=== PATIENT | female | born 1980 | race Caucasian/White ===

== ENCOUNTER 2020-12-16 14:55 | Emergency (ER) | payer MEDICAID ==
[~2020-12-16] VITALS: Ht 160 cm; Wt 59.0 kg
[~2020-12-16 14:55] MED LIST: PREN1CAP6 PO
[2020-12-16 15:14] VITALS: BP 118/74
--- NOTE | 2020-12-16 15:38 | NUR ---
PT TO WAIT IN LOBBY
--- NOTE | 2020-12-16 15:40 | NUR ---
C/O VAGINAL BLEEDING , N/V/D X 3 DAYS, LLQ ABDOMINAL PAIN, LOWER BACK PAIN, FEVER X 4 DAYS. ORAL TEMP 98.2 AT THIS TIME. 7 WEEKS . LMP 10/31/20. PMH: APPENDECTOMY, LEFT KIDNEY STONES & SURGERY, C SECTIONX3
[2020-12-16 16:11] LABS: APPEARANCE,URINE SL CLOUDY (CLEAR); BILIRUBIN,URINE NEGATIVE (NEGATIVE); BLOOD, URINE 3+ (NEGATIVE); COLOR,URINE YELLOW (YELLOW); LEUKOCYTE ESTERASE ,URINE TRACE (NEGATIVE); NITRITE, URINE NEGATIVE (NEGATIVE); UGLUCOSE NEGATIVE (NEGATIVE)
[2020-12-16 16:42] LABS: RBC,URINE 50-80 /HPF (0-5)
[2020-12-16 16:42] LABS: BASOPHILS % (AUTO) 0.8 % (0.0-2.0); EOSINOPHILS % (AUTO) 0.3 % (0.0-4.0); HEMATOCRIT 30.6 % (36-48); HEMOGLOBIN 9.7 g/dL (12.0-16.0); LYMPHOCYTES # (AUTO) 1.8 K/uL (2.5-16.5); MEAN CORPUSCULAR HEMOGLOBIN 24 pg (27-31); MEAN CORPUSCULAR HGB CONC 32 g/dL (33-37); MONOCYTES # (AUTO) 0.3 K/uL (0.8-1.0); MONOCYTES % (AUTO) 5.7 % (1.7-9.3); NEUTROPHILS # (AUTO) 3.7 K/uL (1.8-7.7); NEUTROPHILS % (AUTO) 62.2 % (42.2-75.2); PLATELET COUNT (AUTO) 436 K/uL (140-450); RED BLOOD CELL COUNT(AUTO) 4.03 MIL/uL (4.20-5.40); RED CELL DISTRIBUTION WIDTH 18.4 % (11.6-13.7)
[2020-12-16] MEDS ORDERED: CIPR500T4 PO (17:23)
[2020-12-16 17:29] VITALS: BP 118/74
== END 2020-12-16 17:30 | disposition home or self-care (01) ==
LOC: MED 14:55
DX: O03.9 Complete or unspecified spontaneous abortion without complication (principal); O23.41 Unspecified infection of urinary tract in pregnancy, first trimester; Z3A.01 Less than 8 weeks gestation of pregnancy; Z90.49 Acquired absence of other specified parts of digestive tract; Z98.890 Other specified postprocedural states; Z79.899 Other long term (current) drug therapy; Z91.013 Allergy to seafood
CPT/HCPCS: 36415; 76817; 81001; 81025; 84702; 85025; 87086; 99284; Q0092

== ENCOUNTER 2021-02-08 13:18 | Emergency (ER) | payer MEDICAID ==
[~2021-02-08] VITALS: Ht 154.9 cm; Wt 63.0 kg
[~2021-02-08 13:18] MED LIST changes: +CIPR500T4 PO
[2021-02-08 13:32] VITALS: BP 118/58
--- NOTE | 2021-02-08 13:35 | NUR ---
PT AMB TO BED 3
--- NOTE | 2021-02-08 13:38 | NUR ---
BIB BOYFRIEND C/O URINARY BURNING, LOWER BACK,LOWER ABD PAIN, NAUSEA, CHILLS X 3 DAYS AND C/O COUGH, BAUTISTA, RUNNY NOSE X 2 DAYS. MISCARRIAGE LAST MONTH. PMH: HEART MURMUR, APPENDECRTOMY, LEFT KIDNEY STONE
[2021-02-08] MEDS ORDERED: ONDANSETRON 4 MG/2 ML VIAL IVP ONE (13:50)
[2021-02-08] MEDS ORDERED: KETOROLAC 15 MG/ML VIAL IVP ONE (13:50)
[2021-02-08] MEDS ORDERED: NACL 0.9% 1,000 ML IV ONE (13:50)
[2021-02-08 14:11] LABS: BASOPHILS % (AUTO) 0.2 % (0.0-2.0); EOSINOPHILS % (AUTO) 0.1 % (0.0-4.0); HEMOGLOBIN 10.4 g/dL (12.0-16.0); LYMPHOCYTES # (AUTO) 1.7 K/uL (2.5-16.5); LYMPHOCYTES % (AUTO) 16.4 % (20.5-51.1); MEAN CORPUSCULAR HEMOGLOBIN 26 pg (27-31); MEAN CORPUSCULAR HGB CONC 33 g/dL (33-37); MEAN CORPUSCULAR VOLUME 78.5 fL (80-94); MONOCYTES # (AUTO) 0.5 K/uL (0.8-1.0); MONOCYTES % (AUTO) 5.1 % (1.7-9.3); NEUTROPHILS % (AUTO) 78.2 % (42.2-75.2); PLATELET COUNT (AUTO) 366 K/uL (140-450); RED BLOOD CELL COUNT(AUTO) 4.08 MIL/uL (4.20-5.40); RED CELL DISTRIBUTION WIDTH 19.4 % (11.6-13.7); WHITE BLOOD COUNT (AUTO) 10.3 K/uL (4.8-10.8)
--- NOTE | 2021-02-08 14:20 | NUR ---
IVP MEDS GIVEN-NADR AT THIS TIME
--- NOTE | 2021-02-08 14:21 | NUR ---
41 Y/O F HERE FOR LOWER ABD PAIN 12/26, ALSO UTI SYMPTOMS. C/O URINARY BURNING, FREQUENCY, N/V/D, CHILLS, COUGH, RUNNY NOSE.
--- NOTE | 2021-02-08 14:22 | NUR ---
KRANTHI AND INFLUENZA SWAB DONE AND IN LAB.
--- NOTE | 2021-02-08 14:27 | NUR ---
PATIENT TO CT SCAN VIA WHEELCHAIR.
--- NOTE | 2021-02-08 14:36 | NUR ---
PATIENT BACK FROM CT.
[2021-02-08 15:13] LABS: APPEARANCE,URINE HAZY (CLEAR); BILIRUBIN,URINE NEGATIVE (NEGATIVE); BLOOD, URINE 2+ (NEGATIVE); COLOR,URINE YELLOW (YELLOW); LEUKOCYTE ESTERASE ,URINE 3+ (NEGATIVE); NITRITE, URINE NEGATIVE (NEGATIVE); PH,URINE 6.5 (5.0-9.0); UGLUCOSE NEGATIVE (NEGATIVE)
[2021-02-08 15:19] LABS: ALBUMIN 3.8 g/dL (3.4-5.0); CARBON DIOXIDE 25.3 mmol/L (21-32); CREATININE 0.8 mg/dL (0.6-1.3); POTASSIUM 4.3 mmol/L (3.5-5.1); TOTAL BILIRUBIN 0.6 mg/dL (0.0-1.0)
[2021-02-08 15:29] LABS: RBC,URINE 0-5 /HPF (0-5); WBC,URINE 60-80 /HPF (0-5)
[2021-02-08] MEDS ORDERED: cephALEXin 500 MG CAP PO ONE (15:40)
[2021-02-08] MEDS ORDERED: CEPH-588 PO (15:44)
[2021-02-08] MEDS ORDERED: ONDA-188 SL (15:45)
--- NOTE | 2021-02-08 16:22 | NUR ---
Patient discharged with v/s stable. Written and verbal after care instructions given and explained. Patient alert, oriented and verbalized understanding of instructions. Ambulatory with steady gait. All questions addressed prior to discharge. ID band removed. Patient advised to follow up with PMD. Rx of CEPHALEXIN, ONDANSETRON given. . Opportunity to ask questions provided and answered.
== END 2021-02-08 16:22 | disposition home or self-care (01) ==
LOC: MED 13:18
DX: N12 Tubulo-interstitial nephritis, not specified as acute or chronic (principal); Z20.822 Contact with and (suspected) exposure to COVID-19; Z90.49 Acquired absence of other specified parts of digestive tract; Z98.890 Other specified postprocedural states; Z87.442 Personal history of urinary calculi; Z91.013 Allergy to seafood; Z79.899 Other long term (current) drug therapy
CPT/HCPCS: 36415; 74176; 80053; 81001; 81025; 83690; 85025; 87086; 87426; 87804; 96361; 96374; 96375; 99284; J1885; J2405; J7030

== ENCOUNTER 2021-02-18 15:18 | Emergency (ER) | payer MEDICAID ==
[~2021-02-18] VITALS: Ht 154.9 cm; Wt 58.5 kg
[~2021-02-18 15:18] MED LIST changes: +CEPH-588 PO; +ONDA-188 SL
[2021-02-18 15:30] VITALS: BP 106/65
--- NOTE | 2021-02-18 16:25 | NUR ---
41YO F C/O ABDOMINAL CRAMPING, SPOTTING, VOMITING AND INTERMITTENT FEVER X 1.5 WEEKS. LMP: JAN 06, 2021. PT STATED THE SPOTTING IS CONTROLLED AT THIS TIME. PT DIAGNOSED WITH UTI 2 WEEKS AGO, ON DAY 10 CEPHALEXIN. PT DENIES ANY CHEST PAIN, SOB, FEVER/CHILLS AT THIS TIME. ABDOMEN IS SOFT AND NON-TENDER TO TOUCH. SKIN IS DRY AND INTACT. PT PLACED ONTO MONOTYPE SETTER AT THIS TIME AND PLACED INTO GOWN PMH: NEPHROLITHIASIS, APPENDECTOMY, CSX3 MEDS: NONE NKA
--- NOTE | 2021-02-18 16:33 | NUR ---
20 G IV ESTABLISHED IN L AC. BLOOD WORK COLLECTED AND HANDED TO HOGSHEAD PRESS OPERATOR [facility]
--- NOTE | 2021-02-18 16:35 | NUR ---
DR. URIOSTEGUI BESIDE EVALUATING PT
[2021-02-18 16:38] LABS: BASOPHILS % (AUTO) 0.4 % (0.0-2.0); EOSINOPHILS % (AUTO) 0.3 % (0.0-4.0); HEMOGLOBIN 10.8 g/dL (12.0-16.0); LYMPHOCYTES # (AUTO) 1.5 K/uL (2.5-16.5); LYMPHOCYTES % (AUTO) 20.4 % (20.5-51.1); MEAN CORPUSCULAR HEMOGLOBIN 26 pg (27-31); MEAN CORPUSCULAR HGB CONC 33 g/dL (33-37); MEAN CORPUSCULAR VOLUME 79.9 fL (80-94); MONOCYTES # (AUTO) 0.5 K/uL (0.8-1.0); MONOCYTES % (AUTO) 6.3 % (1.7-9.3); NEUTROPHILS # (AUTO) 5.2 K/uL (1.8-7.7); NEUTROPHILS % (AUTO) 72.6 % (42.2-75.2); PLATELET COUNT (AUTO) 399 K/uL (140-450); RED BLOOD CELL COUNT(AUTO) 4.13 MIL/uL (4.20-5.40); RED CELL DISTRIBUTION WIDTH 19.6 % (11.6-13.7); WHITE BLOOD COUNT (AUTO) 7.2 K/uL (4.8-10.8)
--- NOTE | 2021-02-18 16:59 | NUR ---
US TECH BEDSIDE WITH PATIENT
[2021-02-18 17:01] LABS: ANION GAP 11.5 (8-16); CARBON DIOXIDE 27.1 mmol/L (21-32); CREATININE 0.7 mg/dL (0.6-1.3); POTASSIUM 3.6 mmol/L (3.5-5.1); TOTAL BILIRUBIN 0.3 mg/dL (0.0-1.0)
--- NOTE | 2021-02-18 17:41 | NUR ---
Female [employer] Developer accompanied female patient for Pelvic Exam. WET MOUNT AND CULTURE SWAB COLLECTED DURING PELVIC EXAM AND HANDED TO TEAROOM HOST/HOSTESS BEDSIDE
[2021-02-18 19:13] LABS: BILIRUBIN,URINE NEGATIVE (NEGATIVE); BLOOD, URINE NEGATIVE (NEGATIVE); COLOR,URINE YELLOW (YELLOW); LEUKOCYTE ESTERASE ,URINE 2+ (NEGATIVE); NITRITE, URINE NEGATIVE (NEGATIVE); PH,URINE 6.5 (5.0-9.0); UGLUCOSE NEGATIVE (NEGATIVE)
[2021-02-18 19:23] LABS: APPEARANCE,URINE HAZY (CLEAR)
[2021-02-18 19:40] LABS: RBC,URINE NONE SEEN /HPF (0-5); WBC,URINE 0-5 /HPF (0-5)
--- NOTE | 2021-02-18 19:43 | NUR ---
Pt report given to ALEX HOLDER. Transfer of care at this time.
--- NOTE | 2021-02-18 20:19 | NUR ---
dropped off 2nd urine at lab
[2021-02-18] MEDS ORDERED: NITR100C7 PO (20:53)
[2021-02-18] MEDS ORDERED: NITROFURANTOIN 100 MG CAP PO SCH (21:05)
[2021-02-18 21:06] VITALS: BP 131/64
--- NOTE | 2021-02-18 21:09 | NUR ---
Patient discharged with v/s stable. Written and verbal after care instructions given and explained. Patient alert, oriented and verbalized understanding of instructions. Ambulatory with steady gait. All questions addressed prior to discharge. ID band removed. Patient advised to follow up with PMD. Rx of macrobid 100mg capsule given. Opportunity to ask questions provided and answered.
--- NOTE | 2021-02-18 21:11 | NUR ---
The patient's care was reviewed and supervised by LUCIE DOUGHERTY RN.
== END 2021-02-18 21:06 | disposition home or self-care (01) ==
LOC: MED 15:18
DX: O20.0 Threatened abortion (principal); O23.41 Unspecified infection of urinary tract in pregnancy, first trimester; Z91.013 Allergy to seafood
CPT/HCPCS: 36415; 76801; 80053; 81001; 81025; 82150; 83690; 84702; 85025; 86886; 86900; 86901; 87086; 87210; 99284; Q0092; 87491

== ENCOUNTER 2021-03-01 12:00 | Emergency (ER) | payer MEDICAID ==
[~2021-03-01] VITALS: Ht 154.9 cm; Wt 61.0 kg
[~2021-03-01 12:00] MED LIST changes: +NITR100C7 PO
[2021-03-01 12:18] VITALS: BP 115/70
[2021-03-01 12:22] VITALS: BP 115/70
--- NOTE | 2021-03-01 12:22 | NUR ---
PT AMB TO ER BED 5
--- NOTE | 2021-03-01 12:36 | NUR ---
DR WADDELL EXAMINING PT
--- NOTE | 2021-03-01 12:46 | NUR ---
URINE COLLECTED AND TAKEN TO THE LAB.
--- NOTE | 2021-03-01 12:54 | NUR ---
LAB AT BEDSIDE.
--- NOTE | 2021-03-01 12:54 | NUR ---
41 Y/O F C/O VAGINAL SPOTTING FOR 3 DAYS ON AND OFF. LOWER ABD PAIN 9/10 THAT RADIATES TO HER L LOWER ABD. PAIN FEELS LIKE STRONG CRAMPS. PMH: HEART MURMUR
--- NOTE | 2021-03-01 12:56 | NUR ---
ULTRASOUND AT BEDSIDE.
[2021-03-01 13:01] LABS: BASOPHILS % (AUTO) 0.4 % (0.0-2.0); EOSINOPHILS % (AUTO) 0.3 % (0.0-4.0); HEMATOCRIT 35.7 % (36-48); HEMOGLOBIN 11.5 g/dL (12.0-16.0); LYMPHOCYTES # (AUTO) 1.2 K/uL (2.5-16.5); LYMPHOCYTES % (AUTO) 14.7 % (20.5-51.1); MEAN CORPUSCULAR HEMOGLOBIN 27 pg (27-31); MEAN CORPUSCULAR HGB CONC 32 g/dL (33-37); MONOCYTES # (AUTO) 0.4 K/uL (0.8-1.0); MONOCYTES % (AUTO) 4.4 % (1.7-9.3); NEUTROPHILS # (AUTO) 6.4 K/uL (1.8-7.7); NEUTROPHILS % (AUTO) 80.2 % (42.2-75.2); PLATELET COUNT (AUTO) 319 K/uL (140-450); RED BLOOD CELL COUNT(AUTO) 4.31 MIL/uL (4.20-5.40); RED CELL DISTRIBUTION WIDTH 21.4 % (11.6-13.7)
[2021-03-01 13:12] LABS: APPEARANCE,URINE CLEAR (CLEAR); BILIRUBIN,URINE NEGATIVE (NEGATIVE); BLOOD, URINE TRACE-I (NEGATIVE); COLOR,URINE YELLOW (YELLOW); LEUKOCYTE ESTERASE ,URINE 1+ (NEGATIVE); NITRITE, URINE NEGATIVE (NEGATIVE); UGLUCOSE NEGATIVE (NEGATIVE)
[2021-03-01 13:45] LABS: RBC,URINE 0-5 /HPF (0-5); WBC,URINE 0-5 /HPF (0-5)
[2021-03-01] MEDS ORDERED: NITR100C7 PO (14:42)
--- NOTE | 2021-03-01 14:55 | NUR ---
Patient discharged with v/s stable. Written and verbal after care instructions given and explained. Patient alert, oriented and verbalized understanding of instructions. Ambulatory with steady gait. All questions addressed prior to discharge. ID band removed. Patient advised to follow up with PMD. Rx of NITROFURANTOIN MONOHYD/M-CRYST given. Opportunity to ask questions provided and answered.
--- NOTE | 2021-03-01 14:56 | NUR ---
Chart checked and completed. The patient's care was reviewed and supervised by Eufemia Laguna RN.
== END 2021-03-01 14:55 | disposition home or self-care (01) ==
LOC: MED 12:00
DX: O23.41 Unspecified infection of urinary tract in pregnancy, first trimester (principal); O20.8 Other hemorrhage in early pregnancy; Z3A.01 Less than 8 weeks gestation of pregnancy; Z90.49 Acquired absence of other specified parts of digestive tract; Z98.890 Other specified postprocedural states; Z79.899 Other long term (current) drug therapy; Z91.013 Allergy to seafood
CPT/HCPCS: 36415; 76817; 81001; 81025; 84702; 85025; 86900; 86901; 87086; 99284; Q0092

== ENCOUNTER 2021-03-20 11:09 | Emergency (ER) | payer MEDICAID ==
[~2021-03-20] VITALS: Ht 154.9 cm; Wt 61.2 kg
[~2021-03-20 11:09] MED LIST changes: -CEPH-588 PO; -CIPR500T4 PO; +FERR325E14 PO; -ONDA-188 SL
[2021-03-20 11:42] VITALS: BP 116/59
--- NOTE | 2021-03-20 17:33 | NUR ---
LAB ATTEMPTED TO PULL BLOOD, NO ANSWER IN LOBBY OR TENT
== END 2021-03-20 17:33 | disposition left against medical advice (07) ==
LOC: MED 11:09
DX: O26.891 Other specified pregnancy related conditions, first trimester (principal); Z20.822 Contact with and (suspected) exposure to COVID-19; R10.9 Unspecified abdominal pain; Z3A.10 10 weeks gestation of pregnancy; Z91.013 Allergy to seafood; Z79.899 Other long term (current) drug therapy
CPT/HCPCS: 99281

== ENCOUNTER 2021-09-13 13:53 | Emergency (ER) | payer MEDICAID ==
[~2021-09-13] VITALS: Ht 154.9 cm; Wt 59.4 kg
[2021-09-13 14:05] VITALS: BP 116/71
--- NOTE | 2021-09-13 14:11 | NUR ---
AMBULATED TO BED 11 WITH STEADY GAIT
--- NOTE | 2021-09-13 14:12 | NUR ---
PT AMBULATED TO BATHROOM
[2021-09-13] MEDS ORDERED: ONDANSETRON 4 MG/2 ML VIAL IVP ONE (14:35)
[2021-09-13] MEDS ORDERED: MORPHINE SULFATE 4 MG/ML SYR IVP ONE (14:35)
[2021-09-13] MEDS ORDERED: NACL 0.9% 1,000 ML IV ONE (14:35)
--- NOTE | 2021-09-13 15:08 | NUR ---
41 y/o female, pt presents to the ED for lower abd pain, n/v/d, subjective fever, chills for 1 week. pt states whe she eats her symptoms get worse. skin is pale/warm/dry. a&o x4 with even and steady gait. lungs clear bl, heart rate even and regular. pt denies dysuria, hematuria, urinary frequency or retention, or anyone sick in the household with the same symptoms. pt denies any fever, cp, sob, or cough at this time. pt states pain is 6/10 at this time. vss. patient positioned for comfort. hob elevated. bed down. ermd made aware of pt. pmh: kidney stones, heart murmur, appendectomy allergy: fish-food
--- NOTE | 2021-09-13 15:13 | NUR ---
HANDED BLOOD TO CARMELO
[2021-09-13 15:22] LABS: BASOPHILS % (AUTO) 0.2 % (0.0-2.0); EOSINOPHILS % (AUTO) 0.1 % (0.0-4.0); HEMATOCRIT 36.5 % (36-48); HEMOGLOBIN 12.1 g/dL (12.0-16.0); LYMPHOCYTES # (AUTO) 1.2 K/uL (2.5-16.5); MEAN CORPUSCULAR HEMOGLOBIN 29 pg (27-31); MEAN CORPUSCULAR HGB CONC 33 g/dL (33-37); MEAN CORPUSCULAR VOLUME 87.9 fL (80-94); MONOCYTES # (AUTO) 0.7 K/uL (0.8-1.0); MONOCYTES % (AUTO) 7.1 % (1.7-9.3); NEUTROPHILS # (AUTO) 7.8 K/uL (1.8-7.7); NEUTROPHILS % (AUTO) 80.6 % (42.2-75.2); PLATELET COUNT (AUTO) 323 K/uL (140-450); RED BLOOD CELL COUNT(AUTO) 4.16 MIL/uL (4.20-5.40); RED CELL DISTRIBUTION WIDTH 14.7 % (11.6-13.7); WHITE BLOOD COUNT (AUTO) 9.6 K/uL (4.8-10.8)
[2021-09-13 15:53] LABS: ALBUMIN 3.8 g/dL (3.4-5.0); ANION GAP 8.5 (8-16); CARBON DIOXIDE 30.2 mmol/L (21-32); CREATININE 0.7 mg/dL (0.6-1.3); POTASSIUM 3.7 mmol/L (3.5-5.1); TOTAL BILIRUBIN 0.5 mg/dL (0.0-1.0)
--- NOTE | 2021-09-13 16:14 | NUR ---
Patient appears to be resting comfortably in bed. Vital Signs within normal limits. Respirations even and unlabored.
[2021-09-13 17:15] LABS: APPEARANCE,URINE CLEAR (CLEAR); BILIRUBIN,URINE NEGATIVE (NEGATIVE); BLOOD, URINE TRACE-I (NEGATIVE); COLOR,URINE YELLOW (YELLOW); LEUKOCYTE ESTERASE ,URINE NEGATIVE (NEGATIVE); NITRITE, URINE NEGATIVE (NEGATIVE); UGLUCOSE NEGATIVE (NEGATIVE)
[2021-09-13 17:38] LABS: OTHER CASTS, URINE None Seen /LPF (None Seen); RBC,URINE 0-5 /HPF (0-5); WBC,URINE 0-5 /HPF (0-5)
--- NOTE | 2021-09-13 17:49 | NUR ---
pt taken to ct at this time via wheelchair
[2021-09-13] MEDS ORDERED: BEN10 PO (18:42)
[2021-09-13] MEDS ORDERED: ONDA-188 PO (18:43)
[2021-09-13 19:25] VITALS: BP 116/71
--- NOTE | 2021-09-13 19:25 | NUR ---
Patient discharged with v/s stable. Written and verbal after care instructions given and explained. Patient alert, oriented and verbalized understanding of instructions. Ambulatory with steady gait. All questions addressed prior to discharge. ID band removed. Patient advised to follow up with PMD. Rx of alexia zelaya (sent) given. Patient educated on indication of medication including possible reaction and side effects. Opportunity to ask questions provided and answered.
== END 2021-09-13 19:25 | disposition home or self-care (01) ==
LOC: MED 13:53
DX: A08.4 Viral intestinal infection, unspecified (principal); Z90.49 Acquired absence of other specified parts of digestive tract; Z87.442 Personal history of urinary calculi; Z79.899 Other long term (current) drug therapy; Z91.013 Allergy to seafood
CPT/HCPCS: 36415; 74176; 80053; 81001; 81025; 84702; 85025; 87086; 96361; 96374; 96375; 99284; J2270; J2405; J7030

== ENCOUNTER 2022-01-10 13:29 | Emergency (ER) | payer MEDICAID ==
[~2022-01-10] VITALS: Ht 154.9 cm; Wt 57.2 kg
[~2022-01-10 13:29] MED LIST changes: +BEN10 PO; +ONDA-188 PO
[2022-01-10 13:45] VITALS: BP 111/76
--- NOTE | 2022-01-10 14:00 | NUR ---
C/O LEFT ARM PAIN X1 HOUR AGO. PER PT WINDOW FELL ON AREA, NO DEBRIS,NO OPEN WOUNDS NOTED. 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
[2022-01-10] MEDS ORDERED: KETOROLAC 30 MG/ML VIAL IM ONE (15:10)
[2022-01-10] MEDS ORDERED: NAPR-1704 PO (15:53)
--- NOTE | 2022-01-10 15:56 | NUR ---
KODI WRAP X 1 TO L ELBOW
--- NOTE | 2022-01-10 16:23 | NUR ---
SLING APPLIED TO L ELBOW. + CMS
[2022-01-10 16:28] VITALS: BP 110/85
--- NOTE | 2022-01-10 16:28 | NUR ---
Patient discharged with v/s stable. Written and verbal after care instructions ABOUT CONTUSION given and explained. Patient alert, oriented and verbalized understanding of instructions. Ambulatory with steady gait. All questions addressed prior to discharge. ID band removed. Patient advised to follow up with PMD. Rx of NAPROXEN given. Patient educated on indication of medication including possible reaction and side effects. Opportunity to ask questions provided and answered.
== END 2022-01-10 16:28 | disposition home or self-care (01) ==
LOC: MED 13:29
DX: S50.02XA Contusion of left elbow, initial encounter (principal); S60.032A Contusion of left middle finger without damage to nail, initial encounter; Z90.49 Acquired absence of other specified parts of digestive tract; Z98.890 Other specified postprocedural states; Z79.899 Other long term (current) drug therapy; Z91.013 Allergy to seafood; W19.XXXA Unspecified fall, initial encounter; Y93.89 Activity, other specified; Y92.89 Other specified places as the place of occurrence of the external cause; Y99.8 Other external cause status
CPT/HCPCS: 73080; 73090; 73130; 73140; 81025; 96372; 99284; J1885

== ENCOUNTER 2022-07-18 19:46 | Emergency (ER) | payer MEDICAID ==
[~2022-07-18] VITALS: Ht 157.5 cm; Wt 58.1 kg
[~2022-07-18 19:46] MED LIST changes: +NAPR-1704 PO
[2022-07-18 20:51] VITALS: BP 125/67
[2022-07-18 23:12] VITALS: BP 125/67
--- NOTE | 2022-07-18 23:12 | NUR ---
Pt left without beeing seen.
== END 2022-07-18 23:12 | disposition left against medical advice (07) ==
LOC: MED 19:46
DX: M79.672 Pain in left foot (principal); Z53.21 Procedure and treatment not carried out due to patient leaving prior to being seen by health care provider
CPT/HCPCS: 99281

== ENCOUNTER 2023-04-22 11:11 | Emergency (ER) | payer MEDICAID, OTHER ==
[~2023-04-22] VITALS: Ht 154.9 cm; Wt 61.2 kg
[2023-04-22 11:28] VITALS: BP 114/61; PULSE 63; RESP 16; TEMP 97.8; O2SAT 98
== END 2023-04-22 12:50 | disposition left against medical advice (07) ==
LOC: MED 11:11
DX: R30.0 Dysuria (principal); N93.9 Abnormal uterine and vaginal bleeding, unspecified; Z53.21 Procedure and treatment not carried out due to patient leaving prior to being seen by health care provider
CPT/HCPCS: 99281

== ENCOUNTER 2023-05-27 17:18 | Emergency (ER) | payer OTHER ==
[~2023-05-27] VITALS: Ht 154.9 cm; Wt 59.0 kg
[2023-05-27 17:25] VITALS: BP 121/78; PULSE 77; RESP 14; TEMP 99.4; O2SAT 100
[2023-05-27] MEDS: KETOROLAC 30 MG/ML VIAL IVP ONE (18:41)
[2023-05-27] MEDS: ONDANSETRON 4 MG/2 ML VIAL IVP ONE (18:41)
[2023-05-27] MEDS: NACL 0.9% 1,000 ML IV SCH (18:41)
[2023-05-27 18:51] LABS: BILIRUBIN,URINE NEGATIVE (NEGATIVE); BLOOD, URINE 3+ (NEGATIVE); COLOR,URINE YELLOW (YELLOW); LEUKOCYTE ESTERASE ,URINE 3+ (NEGATIVE); NITRITE, URINE NEGATIVE (NEGATIVE); PROTEIN,URINE TRACE (NEGATIVE); UGLUCOSE NEGATIVE (NEGATIVE); UROBILINOGEN,URINE 0.2 EU/dL (0.2 - 1)
[2023-05-27 18:51] LABS: BASOPHILS % (AUTO) 0.3 % (0.0-2.0); EOSINOPHILS % (AUTO) 0.3 % (0.0-4.0); HEMATOCRIT 30.3 % (36-48); HEMOGLOBIN 9.9 g/dL (12.0-16.0); LYMPHOCYTES # (AUTO) 1.5 K/uL (2.5-16.5); LYMPHOCYTES % (AUTO) 21.4 % (20.5-51.1); MEAN CORPUSCULAR HEMOGLOBIN 26 pg (27-31); MEAN CORPUSCULAR HGB CONC 33 g/dL (33-37); MEAN CORPUSCULAR VOLUME 80.3 fL (80-94); MONOCYTES # (AUTO) 0.5 K/uL (0.8-1.0); MONOCYTES % (AUTO) 6.7 % (1.7-9.3); NEUTROPHILS % (AUTO) 71.3 % (42.2-75.2); PLATELET COUNT (AUTO) 343 K/uL (140-450); RED BLOOD CELL COUNT(AUTO) 3.77 MIL/uL (4.20-5.40); RED CELL DISTRIBUTION WIDTH 18.2 % (11.6-13.7)
[2023-05-27 18:54] LABS: APPEARANCE,URINE HAZY (CLEAR)
[2023-05-27 18:59] LABS: RBC,URINE 11-20 (MOD) /HPF (0-5); WBC,URINE TOO MANY TO COUNT /HPF (0-5)
[2023-05-27 19:00] LABS: BACTERIA,URINE >30 (MANY) /HPF (None Seen); SQUAMOUS EPITHELIAL CELL,UR 4-10 (MOD) /LPF (0-3 (FEW))
[2023-05-27 19:09] LABS: CALCIUM 8.3 mg/dL (8.5-10.1); CARBON DIOXIDE 28.4 mmol/L (21-32); CREATININE 0.8 mg/dL (0.6-1.3); POTASSIUM 3.4 mmol/L (3.5-5.1)
[2023-05-27 19:13] LABS: ALBUMIN 3.7 g/dL (3.4-5.0); BILIRUBIN,DIRECT 0.1 mg/dL (0.0-0.3); TOTAL BILIRUBIN 0.4 mg/dL (0.0-1.0); TOTAL PROTEIN, SERUM 8.5 g/dL (6.4-8.2)
[2023-05-27] MEDS ORDERED: ACET-8905 PO (19:20)
[2023-05-27] MEDS ORDERED: CIPR500T4 PO (19:20)
[2023-05-27] MEDS ORDERED: ONDA8TAB87 PO (19:20)
[2023-05-27 19:36] VITALS: BP 121/78; PULSE 77; RESP 14; TEMP 99.4; O2SAT 100
== END 2023-05-27 19:37 | disposition home or self-care (01) ==
LOC: MED 17:18
DX: N39.0 Urinary tract infection, site not specified (principal); I25.10 Atherosclerotic heart disease of native coronary artery without angina pectoris; Z79.899 Other long term (current) drug therapy; Z90.49 Acquired absence of other specified parts of digestive tract
CPT/HCPCS: 36415; 74176; 80048; 80076; 81001; 81025; 83690; 85025; 87086; 96361; 96374; 96375; 99285; J1885; J2405; J7030

== ENCOUNTER 2023-07-10 17:27 | Emergency (ER) | payer OTHER ==
[~2023-07-10] VITALS: Ht 154.9 cm; Wt 59.4 kg
[~2023-07-10 17:27] MED LIST changes: +ACET-8905 PO; +CIPR500T4 PO; +ONDA8TAB87 PO
[2023-07-10 17:29] VITALS: BP 121/77; PULSE 63; RESP 18; TEMP 97.8; O2SAT 99
[2023-07-10 18:54] LABS: BASOPHILS % (AUTO) 0.3 % (0.0-2.0); EOSINOPHILS % (AUTO) 0.1 % (0.0-4.0); HEMATOCRIT 32.6 % (36-48); HEMOGLOBIN 10.6 g/dL (12.0-16.0); LYMPHOCYTES # (AUTO) 1.8 K/uL (2.5-16.5); LYMPHOCYTES % (AUTO) 24.5 % (20.5-51.1); MEAN CORPUSCULAR HEMOGLOBIN 25 pg (27-31); MEAN CORPUSCULAR HGB CONC 32 g/dL (33-37); MEAN CORPUSCULAR VOLUME 77.7 fL (80-94); MONOCYTES # (AUTO) 0.5 K/uL (0.8-1.0); MONOCYTES % (AUTO) 6.2 % (1.7-9.3); NEUTROPHILS # (AUTO) 5.1 K/uL (1.8-7.7); NEUTROPHILS % (AUTO) 68.9 % (42.2-75.2); PLATELET COUNT (AUTO) 391 K/uL (140-450); RED CELL DISTRIBUTION WIDTH 17.2 % (11.6-13.7); WHITE BLOOD COUNT (AUTO) 7.4 K/uL (4.8-10.8)
[2023-07-10 19:05] LABS: CARBON DIOXIDE 27.9 mmol/L (21-32); CREATININE 0.8 mg/dL (0.6-1.3); POTASSIUM 3.9 mmol/L (3.5-5.1); TOTAL BILIRUBIN 0.7 mg/dL (0.0-1.0); TOTAL PROTEIN, SERUM 8.1 g/dL (6.4-8.2)
[2023-07-10 19:53] LABS: APPEARANCE,URINE CLEAR (CLEAR); BILIRUBIN,URINE NEGATIVE (NEGATIVE); BLOOD, URINE TRACE-L (NEGATIVE); COLOR,URINE YELLOW (YELLOW); LEUKOCYTE ESTERASE ,URINE NEGATIVE (NEGATIVE); NITRITE, URINE NEGATIVE (NEGATIVE); PROTEIN,URINE NEGATIVE (NEGATIVE); UGLUCOSE NEGATIVE (NEGATIVE)
[2023-07-10 19:56] LABS: BACTERIA,URINE 10-30 (MOD) /HPF (None Seen); MUCUS,URINE 1+ /LPF (None Seen); RBC,URINE 0-5 /HPF (0-5); SQUAMOUS EPITHELIAL CELL,UR 4-10 (MOD) /LPF (0-3 (FEW)); WBC,URINE 0-5 /HPF (0-5)
[2023-07-10 21:25] VITALS: O2SAT 98
[2023-07-10] MEDS ORDERED: CEPH-588 PO (21:51)
[2023-07-10] MEDS: KETOROLAC 30 MG/ML VIAL IVP ONE (22:28)
[2023-07-10 22:41] VITALS: BP 119/75; PULSE 66; RESP 17; TEMP 98.3; O2SAT 99
== END 2023-07-10 22:41 | disposition home or self-care (01) ==
LOC: MED 17:27
DX: N39.0 Urinary tract infection, site not specified (principal); I25.10 Atherosclerotic heart disease of native coronary artery without angina pectoris; Z79.899 Other long term (current) drug therapy
CPT/HCPCS: 36415; 74177; 80053; 81001; 81025; 83690; 85025; 87086; 96374; 99285; J1885; Q9967

== ENCOUNTER 2023-09-11 15:01 | Emergency (ER) | payer OTHER ==
[~2023-09-11] VITALS: Ht 154.9 cm; Wt 57.4 kg
[~2023-09-11 15:01] MED LIST changes: +CEPH-588 PO
[2023-09-11 15:25] VITALS: BP 104/71; PULSE 61; RESP 18; TEMP 97.3; O2SAT 98
[2023-09-11 17:11] VITALS: BP 110/75; PULSE 63; RESP 18; TEMP 97.7; O2SAT 98
[2023-09-11 17:22] LABS: BASOPHILS % (AUTO) 0.6 % (0.0-2.0); EOSINOPHILS % (AUTO) 0.4 % (0.0-4.0); HEMOGLOBIN 9.7 g/dL (12.0-16.0); LYMPHOCYTES # (AUTO) 1.1 K/uL (2.5-16.5); LYMPHOCYTES % (AUTO) 19.6 % (20.5-51.1); MEAN CORPUSCULAR HEMOGLOBIN 25 pg (27-31); MEAN CORPUSCULAR HGB CONC 33 g/dL (33-37); MEAN CORPUSCULAR VOLUME 76.9 fL (80-94); MONOCYTES # (AUTO) 0.3 K/uL (0.8-1.0); MONOCYTES % (AUTO) 5.9 % (1.7-9.3); NEUTROPHILS # (AUTO) 4.2 K/uL (1.8-7.7); NEUTROPHILS % (AUTO) 73.5 % (42.2-75.2); PLATELET COUNT (AUTO) 348 K/uL (140-450); RED CELL DISTRIBUTION WIDTH 19.2 % (11.6-13.7); WHITE BLOOD COUNT (AUTO) 5.8 K/uL (4.8-10.8)
[2023-09-11 17:47] LABS: ALBUMIN 3.8 g/dL (3.4-5.0); ANION GAP 11.4 (8-16); CALCIUM 8.6 mg/dL (8.5-10.1); CARBON DIOXIDE 27.8 mmol/L (21-32); CREATININE 0.8 mg/dL (0.6-1.3); POTASSIUM 4.2 mmol/L (3.5-5.1); TOTAL BILIRUBIN 0.6 mg/dL (0.0-1.0); TOTAL PROTEIN, SERUM 7.6 g/dL (6.4-8.2)
[2023-09-11] MEDS ORDERED: IBUP-2213 PO (18:45)
[2023-09-11] MEDS ORDERED: KETOROLAC 30 MG/ML VIAL IM ONE (18:45)
[2023-09-11] MEDS: KETOROLAC 30 MG/ML VIAL IVP ONE (18:51)
== END 2023-09-11 19:00 | disposition home or self-care (01) ==
LOC: MED 15:01
DX: K42.9 Umbilical hernia without obstruction or gangrene (principal); D64.9 Anemia, unspecified; Z79.1 Long term (current) use of non-steroidal anti-inflammatories (NSAID); Z79.2 Long term (current) use of antibiotics; Z86.79 Personal history of other diseases of the circulatory system; Z90.49 Acquired absence of other specified parts of digestive tract; Z79.899 Other long term (current) drug therapy; Z91.013 Allergy to seafood
CPT/HCPCS: 36415; 74177; 80053; 81025; 83690; 85025; 96374; 99285; J1885; Q9967

== ENCOUNTER 2023-11-03 17:57 | Emergency (ER) | payer OTHER ==
[~2023-11-03] VITALS: Ht 154.9 cm; Wt 55.8 kg
[~2023-11-03 17:57] MED LIST changes: +IBUP-2213 PO
[2023-11-03 18:16] VITALS: BP 117/72; PULSE 66; RESP 16; TEMP 98.3; O2SAT 100
[2023-11-03] MEDS: IBUPROFEN 600 MG TAB PO ONE (18:39)
[2023-11-03 18:58] LABS: APPEARANCE,URINE CLEAR (CLEAR); BILIRUBIN,URINE NEGATIVE (NEGATIVE); BLOOD, URINE 3+ (NEGATIVE); COLOR,URINE YELLOW (YELLOW); LEUKOCYTE ESTERASE ,URINE 2+ (NEGATIVE); NITRITE, URINE NEGATIVE (NEGATIVE); PH,URINE 7.5 (5.0-9.0); PROTEIN,URINE 1+ (NEGATIVE); UGLUCOSE NEGATIVE (NEGATIVE); UROBILINOGEN,URINE 0.2 EU/dL (0.2 - 1)
[2023-11-03 19:15] LABS: BACTERIA,URINE FEW /HPF (None Seen); MUCUS,URINE None Seen /LPF (None Seen); RBC,URINE 11-20 (MOD) /HPF (0-5); SQUAMOUS EPITHELIAL CELL,UR 0-3 (FEW) /LPF (0-3 (FEW))
[2023-11-03 19:16] LABS: TRICHOMONAS,URINE None Seen /HPF (None Seen); WHITE BLOOD CELL CASTS,URINE None Seen /LPF (None Seen); YEAST,URINE None Seen /HPF (None Seen)
[2023-11-03] MEDS ORDERED: IBUP-2213 PO (19:42)
[2023-11-03] MEDS ORDERED: CEPH-588 PO (19:42)
[2023-11-03] MEDS ORDERED: PYR100 PO (19:42)
[2023-11-03 19:51] VITALS: BP 117/72; PULSE 66; RESP 16; TEMP 98.3; O2SAT 100
== END 2023-11-03 19:51 | disposition home or self-care (01) ==
LOC: MED 17:57
DX: S66.812A Strain of other specified muscles, fascia and tendons at wrist and hand level, left hand, initial encounter (principal); S40.022A Contusion of left upper arm, initial encounter; Z79.899 Other long term (current) drug therapy; Z79.1 Long term (current) use of non-steroidal anti-inflammatories (NSAID); Z91.013 Allergy to seafood; W17.89XA Other fall from one level to another, initial encounter; Y93.89 Activity, other specified; Y92.89 Other specified places as the place of occurrence of the external cause; Y99.8 Other external cause status
CPT/HCPCS: 73080; 73090; 81001; 81025; 87086; 87186; 99284